=== PATIENT | male | born 1980 | race African-American/Black ===

== ENCOUNTER 2017-05-22 17:14 | Emergency (ER) | payer MEDICAID ==
[~2017-05-22] VITALS: Ht 180.3 cm; Wt 105.0 kg
[2017-05-22 18:49] VITALS: BP 125/70; PULSE 105; RESP 25; TEMP 102; O2SAT 97
[2017-05-22] MEDS ORDERED: SODIUM CHLOR 0.9% 1000 ML INJ 1,000 ML IV ONE ×2 (19:00)
--- NOTE | 2017-05-22 19:20 | PD ---
HPI Chief Complaint: Chest Pain Time Seen by Provider: 18:50 Travel History International Travel<30 days: No Contact w/Intl Traveler<30days: No Traveled to known affect area: No History of Present Illness HPI Is a 36-year-old man who presents to the emergency department complaining of left-sided chest pain started yesterday. He resides at a custodial. He had a history of schizophrenia. He also has a history of pneumothorax. He reports he started feeling bad yesterday. He has had a little bit of cough and congestion. Did not notice any fevers until he arrived in the ED today. He has had headache. No nausea vomiting. No other associated symptoms. One staff members been a little bit sick in the custodial. History Past Medical History Narrative Medical Schizophrenia Hypertension Hypothyroidism History pneumothorax Social History Alcohol Use: No Tobacco Use: Yes Allergies-Medications (Allergen,Severity, Reaction): Coded Allergies: No Known Allergies (Unverified , 05/22/17) Review of Systems Except as stated in HPI: all other systems reviewed are Neg Physical Exam Narrative GENERAL: Well-appearing 36-year-old man, no acute distress. SKIN: Focused skin assessment shows warm a little bit diaphoretic skin HEAD: Atraumatic. Normocephalic. NECK: Trachea midline. No JVD. No meningismus. HEENT: TMs normal, throat is normal. CARDIOVASCULAR: Regular rate and rhythm. No murmur appreciated. RESPIRATORY: No accessory muscle use. Clear to auscultation. Breath sounds equal bilaterally. GASTROINTESTINAL: Abdomen soft, non-tender, nondistended. Hepatic and splenic margins not palpable. MUSCULOSKELETAL: No obvious deformities. No edema. NEUROLOGICAL: Awake and alert. No obvious cranial nerve deficits. Motor grossly within normal limits. Normal speech. PSYCHIATRIC: Appropriate mood and affect; insight and judgment normal. Data Data Last Documented VS Vital Signs Date Time Temp Pulse Resp B/P (MAP) Pulse Ox O2 Delivery O2 Flow Rate FiO2 05/22/17 18:50 98 Nasal Cannula 2.00 05/22/17 18:49 102.0 105 25 125/70 (88) Orders Orders Sepsis Workup Initiated (05/22/17 ) Complete Blood Count With Diff (05/22/17 19:00) Comprehensive Metabolic Panel (05/22/17 19:00) Lactic Acid Sepsis Protocol (05/22/17 19:00) Influenzae A/B Antigen (05/22/17 19:00) Blood Culture (05/22/17 19:00) Chest, Pa & Lat (05/22/17:00) Ecg Monitoring (05/22/17:00) Iv Access Insert/Monitor (05/22/17 19:00) Oximetry (05/22/17:00) Oxygen Administration (05/22/17:00) Sodium Chlor 0.9% 1000 Ml Inj (Ns 1000 M (05/22/17 19:00) Sodium Chlor 0.9% 1000 Ml Inj (Ns 1000 M (05/22/17 19:00) Ketorolac Inj (Toradol Inj) (05/22/17 19:30) Labs Laboratory Tests Test 05/22/17 19:23 White Blood Count 9.7 TH/MM3 Red Blood Count 4.98 MIL/MM3 Hemoglobin 15.2 GM/DL Hematocrit 45.3 % Mean Corpuscular Volume 90.9 FL Mean Corpuscular Hemoglobin 30.6 PG Mean Corpuscular Hemoglobin Concent 33.7 % Red Cell Distribution Width 14.6 % Platelet Count 233 TH/MM3 Mean Platelet Volume 8.2 FL Neutrophils (%) (Auto) 79.0 % Lymphocytes (%) (Auto) 14.2 % Monocytes (%) (Auto) 6.3 % Eosinophils (%) (Auto) 0.2 % Basophils (%) (Auto) 0.3 % Neutrophils # (Auto) 7.7 TH/MM3 Lymphocytes # (Auto) 1.4 TH/MM3 Monocytes # (Auto) 0.6 TH/MM3 Eosinophils # (Auto) 0.0 TH/MM3 Basophils # (Auto) 0.0 TH/MM3 CBC Comment DIFF FINAL Differential Comment Blood Urea Nitrogen 22 MG/DL Creatinine 1.31 MG/DL Random Glucose 110 MG/DL Total Protein 8.4 GM/DL Albumin 3.9 GM/DL Calcium Level 9.1 MG/DL Alkaline Phosphatase 77 U/L Aspartate Amino Transf (AST/SGOT) 14 U/L Alanine Aminotransferase (ALT/SGPT) 32 U/L Total Bilirubin 0.6 MG/DL Sodium Level 138 MEQ/L Potassium Level 3.4 MEQ/L Chloride Level 99 MEQ/L Carbon Dioxide Level 28.3 MEQ/L Anion Gap 11 MEQ/L Estimat Glomerular Filtration Rate 74 ML/MIN Lactic Acid Level 1.7 mmol/L [facility] Medical Decision Making Medical Screen Exam Complete: Yes Emergency Medical Condition: Yes Interpretation(s) My review of EKG: Sinus tachycardia rate of 107, normal axis, i nonspecific T- wave changes inferior laterally. No definite evidence of acute ischemia. LABS: CBC is unremarkable. CMP is remarkable for mild elevated BUN and creatinine Lactate 1.7 Chest x-ray: No acute disease. Influenza negative Differential Diagnosis Pneumonia, pneumothorax, influenza, weakness, ACS, other Narrative Course Medical decision making INITIAL: 36-year-old man presents to the emergency department complaining of chest pain, fund of fever of 102, little diaphoretic. Likely pneumonia or influenza. Will check labs, x-ray, IV fluids, reassess. Diagnosis Primary Impression: Acute febrile illness Additional Impression: Bronchitis Patient Instructions: General Instructions Additional Instructions: Take antibiotics as prescribed. Drink plenty fluids stay well-hydrated. Follow-up with her primary doctor in the next 2-4 days for repeat evaluation. Med/Other Pt SpecificInfo: No Change to Meds Scripts Azithromycin (Azithromycin) 250 Mg Tab 250 MG PO DAILY for Infection for 4 Days, #4 TAB 0 Refills Prov: Parag De La Cruz MD 05/22/17 Disposition: DISCHARGE HOME Condition: Stable Parag De La Cruz MD May 22, 2017 19:20
[2017-05-22] MEDS ORDERED: KETOROLAC TROMETHAMINE 30 MG/ML (IVP) VIAL IVP ONE (19:30)
[2017-05-22 19:58] LABS: AUTOMATED NEUTROPHIL # 7.7 TH/MM3 (1.8-7.7); BASOPHIL % 0.3 % (0.0-2.0); EOSINOPHIL % 0.2 % (0.0-4.0); HEMATOCRIT 45.3 % (39.0-51.0); HEMOGLOBIN 15.2 GM/DL (13.0-17.0); LYMPH % 14.2 % (9.0-44.0); LYMPHOCYTE # 1.4 TH/MM3 (1.0-4.8); MEAN CELL VOLUME 90.9 FL (80.0-100.0); MEAN CORPUSCULAR HEMOGLOBIN 30.6 PG (27.0-34.0); MEAN CORPUSCULAR HGB CONC 33.7 % (32.0-36.0); MEAN PLATELET VOLUME 8.2 FL (7.0-11.0); MONO % 6.3 % (0.0-8.0); MONOCYTE # 0.6 TH/MM3 (0-0.9); PLATELET COUNT 233 TH/MM3 (150-450); RED BLOOD COUNT 4.98 MIL/MM3 (4.50-5.90); RED CELL DISTRIBUTION WIDTH 14.6 % (11.6-17.2); WHITE BLOOD COUNT 9.7 TH/MM3 (4.0-11.0)
--- NOTE | 2017-05-22 20:06 | RADRPT ---
EXAM DATE/TIME: 05/22/2017 19:10 [place] COMPARISON: No previous studies available for comparison. INDICATIONS : Fever with chest pains. MEDICAL HISTORY : None. SURGICAL HISTORY : None. ENCOUNTER: Initial ACUITY: 1 day PAIN SCORE: 3/10 LOCATION: Bilateral chest FINDINGS: PA and lateral views of the chest demonstrate the lungs to be symmetrically aerated without evidence of mass, infiltrate or effusion. The cardiomediastinal contours are unremarkable. Osseous structure s are intact. CONCLUSION: No acute disease. Adama Pack MD on May 22, 2017 at 20:02 Board Certified Radiologist. This report was verified electronically.
[2017-05-22 20:16] LABS: ALBUMIN 3.9 GM/DL (3.4-5.0); AST (GOT) 14 U/L (15-37); BICARBONATE 28.3 MEQ/L (21.0-32.0); BLOOD UREA NITROGEN 22 MG/DL (7-18); CALCIUM 9.1 MG/DL (8.5-10.1); CHLORIDE 99 MEQ/L (98-107); CREATININE 1.31 MG/DL (0.60-1.30); GLOMERULAR FILTRATION RATE 74 ML/MIN (>89); GLUCOSE,RANDOM 110 MG/DL (74-106); SODIUM (NA) 138 MEQ/L (136-145)
[2017-05-22 20:17] LABS: ALT (GPT) 32 U/L (12-78)
[2017-05-22 20:19] LABS: ALKALINE PHOSPHATASE 77 U/L (45-117); TOTAL BILIRUBIN ADULT 0.6 MG/DL (0.2-1.0); TOTAL PROTEIN 8.4 GM/DL (6.4-8.2)
[2017-05-22] MEDS ORDERED: AZIT250T3 PO (20:25)
[2017-05-22] MEDS ORDERED: AZITHROMYCIN 250 MG TAB PO ONE (20:30)
[2017-05-22 20:38] VITALS: BP 124/77; PULSE 104; RESP 18; TEMP 99.1; O2SAT 98
--- NOTE | 2017-05-23 08:45 | EKG ---
Date Performed: 05/22/2017 Time Performed: 18:48:19 PTAGE: 36 years EKG: SINUS TACHYCARDIA NONSPECIFIC T-WAVE ABNORMALITY ABNORMAL RHYTHM ECG PREVIOUS TRACING : 05/20/2017 05.25, IMAGE NOT AVAILABLE DOCTOR: Efraín Reed Interpretating Date/Time 05/23/2017 08:35:25
== END 2017-05-22 21:01 | disposition home or self-care (01) ==
LOC: NEPD 17:14
DX: J40 Bronchitis, not specified as acute or chronic (principal); R07.9 Chest pain, unspecified; B95.7 Other staphylococcus as the cause of diseases classified elsewhere; R00.0 Tachycardia, unspecified; R51 Headache; R94.31 Abnormal electrocardiogram [ECG] [EKG]; I10 Essential (primary) hypertension; E03.9 Hypothyroidism, unspecified; Z72.0 Tobacco use
CPT/HCPCS: 71046; 80053; 83605; 85025; 86403; 87040; 87077; 87186; 87205; 87804; 93005; 96374; 99285; J1885; J7030